=== PATIENT | female | born 1945 | race Asian ===

== ENCOUNTER → 2016-09-18 | Outpatient (CLI) | payer MEDICARE, OTHER | END | disposition home or self-care (01) | LOC: RADPV 12:06 | PROVIDERS: ATTEND Family Medicine | DX: M24.852 Other specific joint derangements of left hip, not elsewhere classified (principal) | CPT/HCPCS: 73503 ==

== ENCOUNTER → 2017-05-28 | Outpatient (CLI) | payer MEDICARE, OTHER | END | disposition home or self-care (01) | LOC: RADPV 15:20 | PROVIDERS: ATTEND Family Medicine | DX: M47.812 Spondylosis without myelopathy or radiculopathy, cervical region (principal); M50.823 Other cervical disc disorders at C6-C7 level | CPT/HCPCS: 72040 ==

== ENCOUNTER → 2018-06-11 | Outpatient (CLI) | payer MEDICARE, OTHER | END | disposition home or self-care (01) | LOC: RADPV 10:24 | PROVIDERS: ATTEND Family Medicine | DX: Z01.818 Encounter for other preprocedural examination (principal); I51.7 Cardiomegaly; R91.1 Solitary pulmonary nodule ==

== ENCOUNTER → 2021-01-05 | Outpatient (CLI) | payer MEDICARE, OTHER | END | disposition home or self-care (01) | LOC: RADPV 08:46 | PROVIDERS: ATTEND Family Medicine | DX: I70.293 Other atherosclerosis of native arteries of extremities, bilateral legs (principal); M79.604 Pain in right leg; M79.605 Pain in left leg | CPT/HCPCS: 93925; 93970 ==